=== PATIENT | female | born 1995 | race Caucasian/White ===

== ENCOUNTER → 2018-02-04 11:00 | Outpatient (CLI) | payer BC, SELFPAY ==
[2018-02-04 12:51] LABS: Thyroid Stim Hormone (TSH) 1.16 uIU/mL (0.358-3.74)
== END ==
PROVIDERS: Family Provider Family Medicine; PCP Family Medicine; Visit Provider Family Medicine
DX: F39 Unspecified mood [affective] disorder (principal)
CPT/HCPCS: 36415; 84443

== ENCOUNTER 2021-05-30 15:45 | Outpatient (CLI) | payer SELFPAY | END 2021-05-30 23:59 | disposition short-term general hospital (02) | PROVIDERS: PCP Family Medicine; Visit Provider Family Medicine | DX: U07.1 COVID-19 (principal) | CPT/HCPCS: 87635; U0003; U0005 ==